=== PATIENT | male | born 1950 | race Asian ===

== ENCOUNTER → 2016-10-02 | Outpatient (CLI) | payer OTHER | LOC: CIMAGING 09:01 | PROVIDERS: ATTEND Family Medicine | DX: I10 Essential (primary) hypertension (principal) | CPT/HCPCS: 76770-PO ==

== ENCOUNTER → 2016-12-15 | Outpatient (CLI) | payer OTHER | LOC: CIMAGING 07:10 | PROVIDERS: ATTEND Family Medicine | DX: Z13.6 Encounter for screening for cardiovascular disorders (principal); I10 Essential (primary) hypertension; F17.200 Nicotine dependence, unspecified, uncomplicated; E11.9 Type 2 diabetes mellitus without complications ==

== ENCOUNTER 2018-10-11 21:57 | Emergency (ER) | payer OTHER | END 2018-10-12 00:19 | disposition home or self-care (01) | LOC: CED 10-12 00:19 ==